=== PATIENT | female | born 1990 | race Caucasian/White ===

== ENCOUNTER 2019-01-29 05:57 | Emergency (ER) | payer BC ==
[2019-01-29] MEDS ORDERED: DIPHENHYDRAMINE HCL 50 MG/ML VIAL IVP ONE ×2 (06:15→08:09)
[2019-01-29] MEDS ORDERED: METHYLPREDNISOLONE PF 125MG/VIAL IM ONE (06:15)
[2019-01-29] MEDS ORDERED: IPRATROPIUM/ALBUTEROL (0.5MG/3MG) NEB INH ONE (06:15)
[2019-01-29] MEDS ORDERED: 0.9 % SODIUM CHLORIDE 1,000 ML BAG IV ONE (06:17)
[2019-01-29] MEDS ORDERED: METHYLPREDNISOLONE PF 125MG/VIAL IVP ONE (06:23)
[2019-01-29 06:27] LABS: ABSOLUTE NEUTROPHIL COUNT 2.23; BASO % 0.6 % (0-6); EOS % 4.2 % (0-6); GRAN % 36.2 % (47-80); HEMATOCRIT 41.6 % (35.0-47.0); HEMOGLOBIN 13.5 gm/dl (11.6-16.0); LYMPH % 48.9 % (16-45); MEAN CELL VOLUME 87.9 fl (81-97); MEAN CORPUSCULAR HEMOGLOBIN 28.5 pg (27-33); MEAN CORPUSCULAR HGB CONC 32.5 g/dl (32-36); MEAN PLATELET VOLUME 9.8 fl (7.4-10.4); MONO % 10.1 % (0-9); PLATELET COUNT 285 K/uL (130-400); RED BLOOD COUNT 4.73 M/uL (3.80-5.40); RED CELL DISTRIBUTION WIDTH 13.4 % (11.5-14.5); WHITE BLOOD COUNT W/O DIFF 6.2 K/uL (4.2-12.2)
--- NOTE | 2019-01-29 06:31 | Emergency Department Record ---
History of Present Illness - General Chief complaint: Allergic Reaction Stated complaint: ALLERGIC REACTION Time Seen by Provider: 01/29/19 06:15 Source: Patient Mode of Arrival: Ambulatory Limitations: No limitations - History of Present Illness Initial Comments: pt went to [facility] 8hrs ago for a rash on her leg and congestion. she was given a steroid cream and zyrtec. she woke up this am w swelling of her face and feeling like her airway was closing. she has a pain between her shoulders. she said she has had this before when she took clarnic YATES Complaint: Allergic reaction, Hives, Facial swelling Onset/Timin -: Hour(s) Exposure: Medication Symptoms: Rash, Vomiting Severity: Moderate Treatment Prior to Arrival: Benadryl Previous Allergy History: Anaphylaxis, Angioedema - Related Data Home Medications Medication Instructions Recorded Confirmed Last Taken No Home Med [NO HOME MEDS] 01/29/19 01/29/19 Unknown Allergies Allergy/AdvReac Type Severity Reaction Status Date / Time loratadine [From Claritin] Allergy Severe ANAPHYLAXIS Verified 01/29/19 06:26 cetirizine [From Zyrtec] Allergy ANAPHYLAXIS Verified 01/29/19 06:27 Travel Screening - Travel/Exposure Within Last 30 Days Have you traveled within the last 30 days?: No - Travel/Exposure Within Last Year Have you traveled outside the [place] in the last year?: No - Additonal Travel Details Have you been exposed to anyone with a communicable illness?: No - Travel Symptoms Symptom Screening: Vomiting Review of Systems Reviewed: No additional complaints except as noted below Constitutional: Reports: As per HPI. Denies: Chills, Fever, Malaise, Night sweats, Weakness, Weight change Eyes: Reports: As per HPI. Denies: Eye discharge, Eye pain, Photophobia, Vision change ENT: Reports: As per HPI. Denies: Congestion, Dental pain, Ear pain, Epistaxis, Hearing loss, Throat pain Respiratory: Reports: As per HPI. Denies: Cough, Dyspnea, Hemoptysis, Stridor, Wheezes Cardiovascular: Reports: As per HPI. Denies: Arrhythmia, Chest pain, Dyspnea on exertion, Edema, Murmurs, Orthopnea, Palpitations, Paroxysmal nocturnal dyspnea, Rheumatic Fever, Syncope Endocrine: Reports: As per HPI. Denies: Fatigue, Heat or cold intolerance, Polydipsia, Polyuria Gastrointestinal: Reports: As per HPI. Denies: Abdominal pain, Constipation, Diarrhea, Hematemesis, Hematochezia, Melena, Nausea, Vomiting Genitourinary: Reports: As per HPI. Denies: Abnormal menses, Discharge, Dyspareunia, Dysuria, Frequency, Hematuria, Incontinence, Retention, Urgency Musculoskeletal: Reports: As per HPI. Denies: Arthralgia, Back pain, Gout, Joint swelling, Myalgia, Neck pain Skin: Reports: As per HPI, Rash. Denies: Bruising, Change in color, Change in hair/nails, Lesions, Pruritus Neurological: Reports: As per HPI. Denies: Abnormal gait, Confusion, Headache, Numbness, Paresthesias, Seizure, Tingling, Tremors, Vertigo, Weakness Psychiatric: Reports: As per HPI. Denies: Anxiety, Auditory hallucinations, Depression, Homicidal thoughts, Suicidal thoughts, Visual hallucinations Hematological/Lymphatic: Reports: As per HPI. Denies: Anemia, Blood Clots, Easy bleeding, Easy bruising, Swollen glands Past Medical History - SOCIAL HISTORY Smoking Status: Current every day smoker Alcohol Use: Occasional Drug Use: None - RESPIRATORY Hx Respiratory Disorders: No - CARDIOVASCULAR Hx Cardio Disorders: Yes Comment:: murmer - NEURO Hx Neuro Disorders: Yes - GI Hx GI Disorders: No - Hx Genitourinary Disorders: No - ENDOCRINE Hx Endocrine Disorders: No - MUSCULOSKELETAL Hx Musculoskeletal Disorders: No - PSYCH Hx Psych Problems: Yes Hx Anxiety: Yes Hx Depression: Yes - HEMATOLOGY/ONCOLOGY Hx Hematology/Oncology Disorders: No Family Medical History Any Significant Family History?: Yes Family Hx Comment (NOT TO BE USED IN PLACE OF ITEMS BELOW): Mom, Grandma with Thyroid issues. Physical Exam - General General Appearance: Alert, Oriented x3, Cooperative, No acute distress - Head Head exam: Normal inspection - Eye Eye exam: Normal appearance, PERRL, EOMI Pupils: Normal accommodation - ENT ENT exam: Normal exam, Mucous membranes moist, Normal external ear exam, Normal orophraynx Ear exam: Normal external inspection. negative: External canal tenderness Nasal Exam: Normal inspection. negative: Discharge, Sinus tenderness Mouth exam: Normal external inspection, Tongue normal Teeth exam: Normal inspection. negative: Dental caries Throat exam: Normal inspection. negative: Tonsillar erythema, Tonsillar exudate - Neck Neck exam: Normal inspection, Full ROM. negative: Tenderness - Respiratory Respiratory exam: Normal lung sounds bilaterally. negative: Respiratory distress - Cardiovascular Cardiovascular Exam: Regular rate, Normal rhythm, Normal heart sounds - GI/Abdominal GI/Abdominal exam: Soft, Normal bowel sounds. negative: Tenderness - Rectal Rectal exam: Deferred - exam: Deferred - Extremities Extremities exam: Normal inspection, Full ROM, Normal capillary refill. negative: Tenderness - Back Back exam: Reports: Normal inspection, Full ROM. Denies: Muscle spasm, Rash n oted, Tenderness - Neurological Neurological exam: Alert, CN II-XII intact, Normal gait, Oriented X3 - Psychiatric Psychiatric exam: Normal affect, Normal mood - Skin Skin exam: Dry, Erythema, Intact, Normal color, Rash, Warm Distribution of rash: Face, LLE Course Vital Signs 01/29/19 01/29/19 06:06 06:19 Temperature 98.6 F Pulse Rate 92 H Pulse Rate [ 91 H Pulse Ox Probe] Respiratory 28 H 22 Rate Blood Pressure 120/63 [Left Arm] Pulse Ox 96 - Reevaluation(s) Reevaluation #1: 01/29/19 07:09 care being assumed by dr kerr Medical Decision Making - Lab Data Result diagrams: 01/29/19 06:10 Disposition Quality - Quality Measures Quality Measures: N/A - Blood Pressure Screening Does Patient Have Any of the Following: No Blood Pressure Classification: Pre-Hypertensive BP Reading Systolic Measurement: 120 Diastolic Measurement: 63 Screening for High Blood Pressure: < Pre-Hypertensive BP, F/U Documented > [G8950] Pre-Hypertensive Follow-up Interventions: Follow-up with rescreen every year.
[2019-01-29] MEDS ORDERED: ONDANSETRON HCL IV 4 MG/2 ML VIAL IVP ONE (06:38)
--- NOTE | 2019-01-29 07:14 | Emergency Department Record ---
History of Present Illness - General Chief complaint: Allergic Reaction Stated complaint: ALLERGIC REACTION Time Seen by Provider: 01/29/19 06:15 Source: Patient Mode of Arrival: Ambulatory Limitations: No limitations - History of Present Illness Initial Comments: 28 yo female patient turned over at 07:00 am. The patient was turned over at the bedside with Dr Jain. The patient developed a rash that is itchy on the LLE. She woke up early in the morning with nausea, pain in the esophageal area and swelling of the face. She was treated with steroids, duoneb, and Zofran. She is resting comfortably at the time of turnover. The plan is continued monitoring. Onset/Timin -: Hour(s) Exposure: Medication Symptoms: Rash, Vomiting Severity: Moderate Treatment Prior to Arrival: Benadryl Previous Allergy History: Anaphylaxis, Angioedema - Related Data Previous Rx's Medication Instructions Recorded Ranitidine HCl [Zantac] 150 mg PO BID #20 tablet 01/29/19 Allergies Allergy/AdvReac Type Severity Reaction Status Date / Time loratadine [From Claritin] Allergy Severe ANAPHYLAXIS Verified 01/29/19 06:26 cetirizine [From Zyrtec] Allergy ANAPHYLAXIS Verified 01/29/19 06:27 Travel Screening - Travel/Exposure Within Last 30 Days Have you traveled within the last 30 days?: No - Travel/Exposure Within Last Year Have you traveled outside the [place] in the last year?: No - Additonal Travel Details Have you been exposed to anyone with a communicable illness?: No - Travel Symptoms Symptom Screening: Vomiting Review of Systems Constitutional: Reports: As per HPI. Denies: Chills, Fever, Malaise, Night sweats, Weakness, Weight change Eyes: Reports: As per HPI. Denies: Eye discharge, Eye pain, Photophobia, Vision change ENT: Reports: As per HPI. Denies: Congestion, Dental pain, Ear pain, Epistaxis, Hearing loss, Throat pain Respiratory: Reports: As per HPI. Denies: Cough, Dyspnea, Hemoptysis, Stridor, Wheezes Cardiovascular: Reports: As per HPI. Denies: Arrhythmia, Chest pain, Dyspnea on exertion, Edema, Murmurs, Orthopnea, Palpitations, Paroxysmal nocturnal dyspnea, Rheumatic Fever, Syncope Endocrine: Reports: As per HPI. Denies: Fatigue, Heat or cold intolerance, Polydipsia, Polyuria Gastrointestinal: Reports: As per HPI. Denies: Abdominal pain, Constipation, Diarrhea, Hematemesis, Hematochezia, Melena, Nausea, Vomiting Genitourinary: Reports: As per HPI. Denies: Abnormal menses, Discharge, Dyspareunia, Dysuria, Frequency, Hematuria, Incontinence, Retention, Urgency Musculoskeletal: Reports: As per HPI. Denies: Arthralgia, Back pain, Gout, Joint swelling, Myalgia, Neck pain Skin: Reports: As per HPI, Rash. Denies: Bruising, Change in color, Change in hair/nails, Lesions, Pruritus Neurological: Reports: As per HPI. Denies: Abnormal gait, Confusion, Headache, Numbness, Paresthesias, Seizure, Tingling, Tremors, Vertigo, Weakness Psychiatric: Reports: As per HPI. Denies: Anxiety, Auditory hallucinations, Depression, Homicidal thoughts, Suicidal thoughts, Visual hallucinations Hematological/Lymphatic: Reports: As per HPI. Denies: Anemia, Blood Clots, Easy bleeding, Easy bruising, Swollen glands Past Medical History - SOCIAL HISTORY Smoking Status: Current every day smoker Alcohol Use: Occasional Drug Use: None - RESPIRATORY Hx Respiratory Disorders: No - CARDIOVASCULAR Hx Cardio Disorders: Yes Comment:: murmer - NEURO Hx Neuro Disorders: Yes - GI Hx GI Disorders: No - Hx Genitourinary Disorders: No - ENDOCRINE Hx Endocrine Disorders: No - MUSCULOSKELETAL Hx Musculoskeletal Disorders: No - PSYCH Hx Psych Problems: Yes Hx Anxiety: Yes Hx Depression: Yes - HEMATOLOGY/ONCOLOGY Hx Hematology/Oncology Disorders: No Family Medical History Any Significant Family History?: Yes Family Hx Comment (NOT TO BE USED IN PLACE OF ITEMS BELOW): Mom, Grandma with Thyroid issues. Physical Exam - General General Appearance: Alert, Oriented x3, Cooperative, No acute distress, Other (Relaxed, sleeping) Limitations: No limitations - Head Head exam: negative: Atraumatic, Normocephalic - Eye Eye exam: Periorbital swelling (slight). negative: Conjunctival injection, Periorbital tenderness, Scleral icterus - ENT ENT exam: Normal exam, Mucous membranes moist Ear exam: Normal external inspection Nasal Exam: Normal inspection Mouth exam: Normal external inspection - Neck Neck exam: Normal inspection, Full ROM - Respiratory Respiratory exam: Normal lung sounds bilaterally. negative: Accessory muscle use, Chest wall tenderness, Decreased breath sounds, Prolonged expiratory, Respiratory distress, Rhonchi, Stridor, Wheezes - Cardiovascular Cardiovascular Exam: Regular rate, Normal rhythm, Normal heart sounds - GI/Abdominal GI/Abdominal exam: Soft. negative: Tenderness - Rectal Rectal exam: Deferred - exam: Deferred - Extremities Extremities exam: negative: Normal inspection (rash), Calf tenderness, Pedal edema, Tenderness - Back Back exam: Reports: Normal inspection - Neurological Neurological exam: Alert, Oriented X3 - Psychiatric Psychiatric exam: Normal affect, Normal mood - Skin Skin exam: Erythema. negative: Warm Type of lesion: Rash Distribution of rash: LLE Description of rash: Macular, Urticarial. negative: Petechial, Purpuic, Swelling, Tenderness Course Vital Signs 01/29/19 01/29/19 06:06 06:19 Temperature 98.6 F Pulse Rate 92 H Pulse Rate [ 91 H Pulse Ox Probe] Respiratory 28 H 22 Rate Blood Pressure 120/63 [Left Arm] Pulse Ox 96 - Reevaluation(s) Reevaluation #1: The patient was turned over at the time of shift change Vitals and CBC reviewed 01/29/19 07:00 01/29/19 07:20 The labs ordered by Dr Jain were reviewed The ESR is 17 Lyme studies are send out tests The patient was updated on the labs and informed of the send out pending studies. The patient continues to rest comfortably. 01/29/19 07:30 01/29/19 08:10 On recheck after resting the patient states the esophageal discomfort is nearly gone. The facial swelling and erythrema is nearly resolved. She does feel some swelling near the tip of the tongue. She is otherwise still relaxed and resting comfortably. The tongue and posterior oral pharynx appear normal on examination. Continued monitoring. 01/29/19 09:05 The patient is doing well and is comfortable with DC. Her symptoms have essentially resolved except very faint hives I will add Zantac to the steroids and Benadryl that Meaghan had prescribed DC vitals were reviewed. We discussed at length reasons to immediately return to the ED as well as close follow up. Medical Decision Making - Lab Data Result diagrams: 01/29/19 06:10 Lab Results 01/29/19 01/29/19 Range/Units 06:10 06:20 WBC 6.2 (4.2-12.2) K/uL RBC 4.73 (3.80-5.40) M/uL Hgb 13.5 (11.6-16.0) gm/dl Hct 41.6 (35.0-47.0) % MCV 87.9 (81-97) fl MCH 28.5 (27-33) pg MCHC 32.5 (32-36) g/dl RDW 13.4 (11.5-14.5) % Plt Count 285 (130-400) K/uL MPV 9.8 (7.4-10.4) fl Gran % 36.2 L (47-80) % Lymphocytes % 48.9 H (16-45) % Monocytes % 10.1 H (0-9) % Eosinophils % 4.2 (0-6) % Basophils % 0.6 (0-6) % Absolute Neutrophils 2.23 Group A Strep Screen Negative (NEGATIVE) Disposition Disposition: Discharge Clinical Impression: Allergic reaction, Hives Disposition: Home, Self-Care Condition: (1) Good Instructions: Urticaria (ED), General Allergic Reaction (ED) Additional Instructions: Call your doctor for the next available follow up appointment Review this ER visit and the tests performed with your family doctor Return to the ER for a recheck if worse, any new concerns or questions Take the prescriptions provided as directed Prescriptions: Ranitidine HCl [Zantac] 150 mg PO BID #20 tablet Forms: Patient Portal Access Time of Disposition: 09:07 Quality - Quality Measures Quality Measures: N/A - Blood Pressure Screening Does Patient Have Any of the Following: No Blood Pressure Classification: Pre-Hypertensive BP Reading Systolic Measurement: 124 Diastolic Measurement: 77 Screening for High Blood Pressure: < Pre-Hypertensive BP, F/U Documented > [G8950] Pre-Hypertensive Follow-up Interventions: Referral to alternative/primary care provider.
[2019-01-29] MEDS ORDERED: RANITIDINE HCL 50 MG in 0.9 % SODIUM CHLORIDE 100ML 100 ML IVPB ONE (08:09)
== END 2019-01-29 09:18 | disposition home or self-care (01) ==
LOC: ER 05:57
DX: L50.0 Allergic urticaria (principal); R11.2 Nausea with vomiting, unspecified; K22.9 Disease of esophagus, unspecified; F17.210 Nicotine dependence, cigarettes, uncomplicated
CPT/HCPCS: 99284 ×2; 96376; 96365; 96375; 85025; 85651; 87880; 94640; J2405; J1200; J2780; J2930; J7030